=== PATIENT | female | born 1995 | race African-American/Black ===

== ENCOUNTER → 2023-04-12 08:31 | Outpatient (CLI) | payer OTHER, SELFPAY ==
[2023-04-12 10:18] LABS: Add Manual Diff / Slide Review NO; Basophils Absolute Auto 100 /uL (0-100); Eosinophils Absolute Auto 100 /uL (0-450); Eosinophils Percent Auto 1.9 % (2-4); Hematocrit 41.4 % (36-46); Lymphocytes Absolute Auto 1700 /uL (1100-4500); Lymphocytes Percent Auto 23.2 % (25-40); Mean Corpuscular HGB Conc 33.9 % (30-36); Mean Corpuscular Hemoglobin 30.6 PG (26-34); Mean Corpuscular Volume 90.3 fL (80-100); Monocytes Absolute Auto 500 /uL (0-900); Monocytes Percent Auto 6.7 % (3-14); Neutrophils Absolute Auto 4900 /uL (1500-7000); Neutrophils Percent Auto 67.2 % (50-75); Platelet Count 236 X10^3/uL (150-400); Red Blood Cell Count 4.59 X10^6/uL (4.0-5.2); Red Cell Distribution Width 13.8 % (11.6-14.8); White Blood Cell Count 7.4 X10^3/uL (4.5-11.0)
[2023-04-12 11:20] LABS: Hepatitis B Surface Antigen NEGATIVE s/c (NEGATIVE); Rubella Antibody IgG 10.5 IU/mL (>15)
[2023-04-12 11:35] LABS: HIV 1 & 2 Ab/Ag 4th Gen Combo NEGATIVE (NEGATIVE); Hep C Virus Ab w/Reflex Quant NEGATIVE s/c (NEGATIVE)
[2023-04-12 14:33] LABS: Urine N gonorrhoeae NOT DETECTED
[2023-04-12 15:55] LABS: Urine Chlamydia NOT DETECTED
[2023-04-13 06:36] LABS: RPR Screen Non Reactive (Non Reactive)
[2023-04-13 08:17] LABS: Varicella IgG Antibody 465 index (Immune >165)
== END ==
PROVIDERS: Obstetrics & Gynecology; Referring Provider Obstetrics & Gynecology; Visit Provider Obstetrics & Gynecology
DX: Z34.81 Encounter for supervision of other normal pregnancy, first trimester (principal); Z3A.12 12 weeks gestation of pregnancy
CPT/HCPCS: 36415; 80055; 86787; 86803; 86850; 86900; 86901; 87086; 87389; 87491; 87591

== ENCOUNTER → 2023-06-08 10:42 | Outpatient (CLI) | payer OTHER, SELFPAY ==
[2023-06-11 16:53] LABS: AFP, Serum 39.2 ng/mL (.); Estriol, Free 1.34 ng/mL (.); Inhibin A, Dimeric 150.37 pg/mL (.); Inhibin A, MoM 1.18 (.); Maternal Ethnicity Black (.); Maternal Weight 202 lbs (.); Number of Fetuses No (.); OSBR Risk 1 IN 10000 (.); Results Report (.); Test Results *Screen Negative* (.); hCG, MoM 2.98 (.); hCG, Serum 75539 mIU/mL (.)
== END ==
PROVIDERS: Referring Provider Specialist; Visit Provider Specialist
DX: Z34.82 Encounter for supervision of other normal pregnancy, second trimester (principal); Z3A.17 17 weeks gestation of pregnancy
CPT/HCPCS: 36415; 82105; 82677; 84702; 86336

== ENCOUNTER → 2023-06-26 14:22 | Outpatient (CLI) | payer OTHER, SELFPAY ==
--- NOTE | 2023-06-26 14:23 | DI.US.S_ITS ---
PROCEDURE: US OB >= 14 WEEKS FETUS INDICATIONS: ANATOMY SCAN OUTSIDE/PRIOR DATING DATA: Last menstrual period (LMP): 02/04/2023 LMP-based estimated date of delivery (YOGESH): 11/11/2023 First dating scan (date and location): 06/26/2023. Estimated date of delivery (YOGESH) from first dating scan: 11/07/2023. TECHNIQUE: Real-time scanning was performed of the fetus, with image documentation and biometric measurements. COMPARISON: None. FINDINGS: General: A single living intrauterine gestation is present. Presentation: Breech. Placenta: Placental position is anterior fundal , without previa. Amniotic fluid index: 14.8 cm, normal range is 5-24 cm. Single deepest vertical pocket is 4.3 cm. heart rate: 140 beats per minute. Maternal cervical canal: 5.1 cm long. Normal lower limit is 2.5 cm. biometrics: Biparietal diameter: 21 weeks 3 days Head circumference: 21 weeks Abdominal circumference: 20 weeks 6 days Femur length: 19 weeks 6 days Clinically estimated gestational age: 21 weeks 2 days Composite gestational age from present scan: 20 weeks 6 days Estimated weight and percentile: 354 g; 54th percentile Anatomic survey: Neuro: Ventricles are non-dilated at less than 10 mm. Cisterna magna is normal at 3-11 mm. Cerebellum is normal in size and morphology. Nuchal skin fold: Normal at less than 6 mm between 14-21 weeks gestational age. Face: Nose and lips, facial profile are normal. Spine: No evidence for spina bifida. Heart: 4-chambered heart is present, with normal ventricular outflow tracts. Diaphragm: Diaphragm is intact. Stomach: Left-sided stomach is present. Kidneys: Mild bilateral renal pyelectasis with the right renal pelvis measuring 5 mm and the left 6 mm. Cord: 3-vessel cord has orthotopic insertion. Bladder: Normal in size. Extremities: All 4 extremities identified. IMPRESSION: 1. Single living IUP with composite gestational age of 20 weeks 6 days corresponding to ultrasound YOGESH of 11/07/2023. 2. Mild pelvocaliectasis; otherwise normal anatomic survey. Short-term follow-up is recommended. We strive to produce accurate, complete, and clear reports of imaging services. To assist us in improving patient care, this report was composed using standard report templates and voice recognition software. Therefore, it may contain abnormal punctuation, insertions and/or omissions. Occasional wrong-word or sound-alike substitutions may occur. Though we review the report and make efforts to correct it, we do recommend that the report be read carefully in proper context to recognize any text inaccuracies. Dictated by: Dheeraj SAGE Interpreted: Forest Urias MD on 06/26/2023 at 20:21 Approved by: Trav Ornelas M.D. on 06/27/2023 at 9:14
== END ==
PROVIDERS: Referring Provider Specialist; Visit Provider Specialist
DX: Z34.82 Encounter for supervision of other normal pregnancy, second trimester (principal); Z3A.20 20 weeks gestation of pregnancy
CPT/HCPCS: 76811

== ENCOUNTER → 2023-07-20 14:27 | Outpatient (CLI) | payer OTHER, SELFPAY ==
--- NOTE | 2023-07-20 | DI.US.S_ITS ---
PROCEDURE: US OB FOLLOW UP INDICATIONS: FOLLOW UP RENAL PYELECTASIS OUTSIDE/PRIOR DATING DATA: Last menstrual period (LMP): 02/04/2023. LMP-based estimated date of delivery (YOGESH): 11/11/2023. First dating scan (date and location): Not applicable. Estimated date of delivery (YOGESH) from first dating scan: Not applicable. The calculations are made using the working YOGESH of 11/11/2023. TECHNIQUE: Real-time scanning was performed of the fetus, with image documentation and biometric measurements. Endovaginal scanning: None COMPARISON: [facility], OB >= 14 WEEKS FETUS, 06/26/2023, 14:40. FINDINGS: General: A single living intrauterine gestation is present. Presentation: Vertex. Placenta: Placental position is fundal , without previa. Amniotic fluid index: 21.0 cm, normal range is 5-24 cm. Single deepest vertical pocket is 6.9 cm. heart rate: 141 beats per minute. Maternal cervical canal: 4.2 cm long. Normal lower limit is 2.5 cm. Clinically estimated gestational age: 23 week 5 day Other: Right renal pelvis measures 8 mm, while the left renal pelvis measures 7 mm IMPRESSION: Single live intrauterine consistent with 23 week 5 day gestation. Persistent bilateral hydronephrosis, slightly increased from the prior Approved by: Emile Merino M.D. on 07/20/2023 at 18:58
== END ==
PROVIDERS: Referring Provider Specialist; Visit Provider Specialist
DX: O35.EXX0 Maternal care for other (suspected) fetal abnormality and damage, fetal genitourinary anomalies, not applicable or unspecified (principal); Z3A.23 23 weeks gestation of pregnancy
CPT/HCPCS: 76816

== ENCOUNTER → 2023-08-17 09:55 | Outpatient (CLI) | payer OTHER, SELFPAY ==
[2023-08-17 12:04] LABS: Hematocrit 38.5 % (36-46); Hemoglobin 13.1 g/dL (12.0-16.0)
[2023-08-17 12:23] LABS: GTT (PREG) 1 Hour PP 50gm Dose 59 mg/dL (76-139)
== END ==
PROVIDERS: Referring Provider Obstetrics & Gynecology; Visit Provider Obstetrics & Gynecology
DX: Z34.02 Encounter for supervision of normal first pregnancy, second trimester (principal); Z3A.25 25 weeks gestation of pregnancy; Z34.82 Encounter for supervision of other normal pregnancy, second trimester
CPT/HCPCS: 36415; 82950; 85014; 85018

== ENCOUNTER → 2023-10-17 14:43 | Outpatient (CLI) | payer OTHER, SELFPAY ==
[2023-10-18 14:39] LABS: Strep Grp B PCR NEG for Grp B Strep
== END ==
PROVIDERS: Visit Provider Obstetrics & Gynecology
DX: Z34.83 Encounter for supervision of other normal pregnancy, third trimester (principal)
CPT/HCPCS: 87653

== ENCOUNTER → 2023-10-23 17:20 | Outpatient (CLI) | payer OTHER, SELFPAY | PROVIDERS: Visit Provider Obstetrics & Gynecology | DX: R82.998 Other abnormal findings in urine (principal) | CPT/HCPCS: 87086 ==

== ENCOUNTER → 2023-11-14 10:56 | Outpatient (CLI) | payer OTHER, SELFPAY | PROVIDERS: Visit Provider Obstetrics & Gynecology | DX: R82.998 Other abnormal findings in urine (principal) | CPT/HCPCS: 87086 ==

== ENCOUNTER 2023-11-14 19:23 | Inpatient (IN) | payer OTHER, SELFPAY ==
[2023-11-14 19:31] VITALS: BP 127/82
--- NOTE | 2023-11-14 19:52 | PM.OBHP.1 ---
OB HPI Date/Time Date of admission: 11/14/23 Date Patient Seen: 11/14/23 Time Patient Seen: 19:53 History of Present Condition Chief complaint: induction : 3 Para: 2 Estimated Date of Delivery: 11/11/23 Estimated Gestational Age (weeks): 40w3d Narrative: Lauryn Whitehead is a 28 year old female with complicated by bilateral renal pyelectasis presenting for elective IOL. Feeling good. No LOF, VB. Few contractions - mild. Good FM. Indications Indication for induction OB: other (elective) History of Present care: good care Dating criteria: LMP confirmed by 1st trimester US Obstetrical complications: other (renal pyelectasis; rubella non immune) Preadmission Labs Blood type: B (+) positive -: Antibody screen: negative, GBS status: negative, HBsAG: negative, HIV: negative and RPR/VDLR: negative -: Rubella: not immune and Varicella: immune HCT: 38.5 1 hr GTT: 59 Evaluation Evaluation Baseline heart rate: 120 Variability: Moderate (11-25) monitor accelerations: Present Monitor Decelerations: Absent Contraction Frequency (minutes): 4 Uterine Contraction Intensity: Mild Category of Tracing: Reactive Status: Category l Dilation (cm): 2 Effacement (%): 80 station: -1 [facility] Medical History (Updated 11/01/23 @ 11:51 by Mirian Diamond MD) Pilonidal cyst Vaginal delivery Hypertension Surgical History (Updated 05/10/23 @ 20:43 by Nicole Tomas) Anesthesia [place] teeth extracted (~2021) Family History (Updated 05/10/23 @ 20:47 by Nicole Tomas) Father Prostate cancer Diabetes mellitus Mother Hyperlipidemia Mental health problem Social History marital status: number of children: 2 household members: spouse and children lives independently: Yes caregiver/support person: Yes housing: condominium pets and animals: Yes (2 dogs) 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) occupational status: previously employed current occupational exposures/hazards: No special felicitas needs: No travel history: over 6 months ago seatbelt use: always water heater temp set < 120 deg: Yes working smoke detector in home: Yes fire extinguisher in home: Yes carbon monox detector in home: Yes firearms in home: No do you feel safe at home: Yes Smoking Status: Never smoker second hand exposure: No alcohol intake: never substance use type: does not use during the past year weight has: other (youngest baby is only 9 months old) well-balanced diet: rarely or never daily servings fruits/ve-1 caffeine: Yes (occasional soft drink) Type(s) of exercise: walking and running frequency: 3-4 times per week Meds Home Medications and Allergies Home Medications Medication Instructions Recorded Confirmed Type prenat.vits,nina,xfc-zltp-virro 1 tab PO DAILY 04/02/23 11/14/23 History Allergies Allergy/AdvReac Type Severity Reaction Status Date / Time No Known Drug Allergies Allergy Unverified 11/14/23 09:45 Review of Systems Review of Systems Narrative: as above OB Exam Narrative Exam Narrative: GEN: NAD, well appearing, pleasant CV: RRR Pulm:normal WOB, CTAB Abd: gravid, non tender Skin: no visible rashes, WWP Psych: normal affect Neuro: normal gait, symmetric movement Assessment and Plan Assessment and Plan Assessment and Plan narrative: Lauryn Whitehead is a 28 year old female with complicated by bilateral renal pyelectasis presenting for elective IOL. -Options discussed in clinic, patient prefers FB -Joel on her own, monitor overnight and start low pit if needed -Routine monitoring -GBS negative -Epidural PRN -Can use ambien 5 mg or vistaril 50 mg overnight if needed
[2023-11-14 21:07] LABS: Add Manual Diff / Slide Review NO; Basophils Absolute Auto 100 /uL (0-100); Basophils Percent Auto 0.7 % (0-2); Eosinophils Absolute Auto 200 /uL (0-450); Hemoglobin 13.2 g/dL (12.0-16.0); Lymphocytes Absolute Auto 2900 /uL (1100-4500); Lymphocytes Percent Auto 28.9 % (25-40); Mean Corpuscular HGB Conc 33.8 % (30-36); Mean Corpuscular Hemoglobin 30.5 PG (26-34); Mean Corpuscular Volume 90.3 fL (80-100); Monocytes Absolute Auto 700 /uL (0-900); Monocytes Percent Auto 6.9 % (3-14); Neutrophils Absolute Auto 6200 /uL (1500-7000); Neutrophils Percent Auto 61.5 % (50-75); Platelet Count 164 X10^3/uL (150-400); Red Blood Cell Count 4.32 X10^6/uL (4.0-5.2); Red Cell Distribution Width 14.2 % (11.6-14.8)
[2023-11-15] MEDS: OXYTOCIN PREMIX 30 UNIT/500 ML PLAST..BAG IV (06:15)
[2023-11-15] MEDS: LACTATED RINGERS 1,000 ML 100 ML IV ×2 (06:15→14:19)
--- NOTE | 2023-11-15 12:33 | PM.OBPNLAB ---
Date/Time Date Patient Seen: 11/15/23 Time Patient Seen: 12:34 Pain Control Pain control: tolerating well Pelvic Exam Dilation (cm): 6 Effacement (%): 80 station: -1 Amniotic membrane status: Ruptured Contractions Contractions on admission: regular Monitor mode: External Pitocin rate (mU/min): 16 Contraction frequency (min): 2 Contraction duration (min): 1 Contraction pattern: Regular Contraction intensity: Moderate Status status: Category l Heart Rate Baseline: 120 Monitor Accelerations: Present Monitor Decelerations: Absent Monitor Variability: Moderate Assessment and Plan Assessment: active labor Plan: other (AROMed for clear fluid) Comments: Anticipate vaginal delivery
--- NOTE | 2023-11-15 17:55 | PM.OBPRVD ---
Events: Labor Induction (401/2 weeks, concern for fast labor) Labor & Delivery Delivery date: 11/15/23 Intrapartal Events: None Cervical ripening method: per [place] bulb protocol Induction method: per pitocin protocol Delivery augmentation: rupture of membranes Delivery monitor: external FHT and external uterine Route of delivery: L&D Laceration Description: None Estimated blood loss (mL): 100 Narrative: Patient arrived on Labor and delivery for induction for 40 and half weeks with concern for fast labors. She had a [place] bulb placed which was expelled and then she was begun on Pitocin. She had slow progress to 6 cm and was AROMed for clear fluid. She gradually became uncomfortable and used nitrous oxide for pain control. heart tones were mostly reassuring. With the start of nitrous oxide there was a slight decrease in heart rate from 120s to the 105 with some decreased variability and some variable decelerations. Patient became more active and was found to be complete. She had a spontaneous vaginal delivery. After delivery the baby was placed on maternal abdomen. After 2 minutes the cord was clamped, cut, and cord bloods obtained. The viable male who had Apgars of 9 and 9. Placenta delivered spontaneously, intact, with 3 vessels. There were no cervical, vaginal, or perineal tears. Pitocin was increased with delivery of the placenta. Estimated blood loss was 100 cc. Both infant and mother doing well. [place] Baby 1: gender: Male Presentation: vertex Position: Right Occiput Anterior Placenta delivery description: Spontaneous Cord Vessel Description: 3 Vessels score (1 min): 9 score (5 min): 9 Plan for aftercare: Routine care
[2023-11-16 05:42] LABS: Add Manual Diff / Slide Review NO; Basophils Absolute Auto 100 /uL (0-100); Basophils Percent Auto 0.5 % (0-2); Eosinophils Absolute Auto 200 /uL (0-450); Eosinophils Percent Auto 1.4 % (2-4); Hematocrit 35.6 % (36-46); Lymphocytes Absolute Auto 2800 /uL (1100-4500); Mean Corpuscular HGB Conc 33.6 % (30-36); Mean Corpuscular Hemoglobin 30.4 PG (26-34); Mean Corpuscular Volume 90.4 fL (80-100); Monocytes Absolute Auto 1000 /uL (0-900); Monocytes Percent Auto 7.1 % (3-14); Neutrophils Absolute Auto 9800 /uL (1500-7000); Platelet Count 148 X10^3/uL (150-400); Red Blood Cell Count 3.93 X10^6/uL (4.0-5.2); Red Cell Distribution Width 13.7 % (11.6-14.8); White Blood Cell Count 13.9 X10^3/uL (4.5-11.0)
--- NOTE | 2023-11-16 11:52 | PM.OBDS.1 ---
Discharge Providers Provider Date of admission: 11/14/23 19:23 Discharge Date: 11/16/23 Primary care physician: JOHNNY Salinas Consults: 11/16/23 17:52 Consult to Sales Enablement Analyst Routine Comment: Discharge provider: Mirian Diamond MD Summary Hospital Course Date Patient Seen: 11/16/23 Time Patient Seen: 11:53 Diagnoses: 40 week gestation with spontaneous vaginal delivery Hospital Course: Patient arrived on Labor and delivery and received [place] bulb for induction for concerns for fast labor. She was started on Pitocin. She progressed to spontaneous vaginal delivery without tears. She is tolerating regular diet, urinating, ambulating well. Breast-feeding is going well. She denies any headaches, scotomata, epigastric pain. Peripartum Data Delivery Method: Natural Vaginal Laceration Description: None Procedures: Induction with [place] bulb and augmentation with Pitocin and AROM. Spontaneous vaginal delivery complications: none 1: Gender: Male Disposition of : home Discharge Diagnosis (1) Vaginal delivery: Status: Acute Status at Discharge Cognitive/behavioral status at discharge: oriented Functional status at discharge: independent ambulation Overall status at discharge: patient is progressing back to baseline Time Spent with Patient Time attestation: Total time spent providing and/or coordinating discharge services: Time spent: Less than 30 minutes Objective Labs 11/16/23 05:36 Labs: Laboratory Results - last 24 hr 11/16/23 05:36 WBC 13.9 H RBC 3.93 L Hgb 12.0 Hct 35.6 L MCV 90.4 MCH 30.4 MCHC 33.6 RDW 13.7 Plt Count 148 L Neut % (Auto) 71.0 Lymph % (Auto) 20.0 L [place] % (Auto) 7.1 Eos % (Auto) 1.4 L Baso % (Auto) 0.5 Neut # (Auto) 9800 H Lymph # (Auto) 2800 [place] # (Auto) 1000 H Eos # (Auto) 200 Baso # (Auto) 100 Exam Vital Signs (past 8 hours): Blood pressure 118/75, pulse of 89, temperature 96.9? Narrative Exam Narrative: Abdomen is soft, nontender. Uterus is firm, U -1, nontender. Perineum intact. Lochia mild. Extremities without edema and nontender. Discharge Plan Discharge Plan Patient Disposition: Home Discharge orders & Medications Prescriptions: Continued prenat.vits,nina,icc-htso-ratna Tablet 1 tab PO DAILY Follow up/Referrals: Earline Fernandez, TREMAYNE-C [Primary Care Provider] - Morteza Montes MD [Physician] - 6 Weeks (Please follow up with Dr Montes on December 27 at 3:30pm. Please call the clinic with any questions ) Diet/Activity/Treatments Diet: Regular Activity: Nothing in vagina for 6 weeks Skin/Wound/Dressing Care Report to your healthcare provider any signs of infection, such as:: chills, fever and increased pain Visit Report/Discharge Packet Instructions: DI for Labor and Delivery, Vaginal Stand Alone Forms: Discharge: Care, Patient Portal/API Discharge Data Primary Care Provider: Earline Fernandez
[2023-11-16 12:27] VITALS: BP 118/75; PULSE 99; RESP 15; TEMP 36.1
== END 2023-11-16 14:05 | disposition home or self-care (01) | DRG 806 ==
PROVIDERS: Specialist; Admitting Provider Obstetrics & Gynecology; PCP Nurse Practitioner Family; Referring Provider Obstetrics & Gynecology; Visit Provider Family Medicine
DX: O99.892 Other specified diseases and conditions complicating childbirth (principal); N13.39 Other hydronephrosis; Z37.0 Single live birth; Z3A.40 40 weeks gestation of pregnancy; R82.998 Other abnormal findings in urine
CPT/HCPCS: 36415; 59050; 59200; 59400; 59409; 85025; 86850; 86900; 86901; 87086; G0379; J2590